=== PATIENT | male | born 1995 | race Caucasian/White ===

== ENCOUNTER 2019-11-27 20:29 | Emergency (ER) | payer MEDICAID, OTHER ==
[~2019-11-27] VITALS: Ht 177.8 cm; Wt 76.2 kg
--- NOTE | 2019-11-27 20:41 | NUR ---
PATIENT CAME TO ER BED 1 C/O RIGHT ANKLE PAIN. PATIENT STATES THAT TODAY HE WAS WALKING UP STAIRS WHEN HE TWISTED HIS RIGHT ANKLE. SWELLING NOTED ON THE LATERAL SIDE ON THE MIDFOOT. PATIENT ABLE TO WRIGGLE TOES. SENSATION IS EQUAL TO THE LEFT FOOT. PATIENT'S PEDAL PULSES PRESENT BILATERALLY AND EQUALLY. AAOX4. NO SOB .BREATHING EVENLY AND UNLABORED ON ROOM AIR.
--- NOTE | 2019-11-27 20:41 | NUR ---
XRAY AT BEDSIDE.
[2019-11-27] MEDS ORDERED: HYDROCODONE/APAP 10/325MG TABLET ONE (21:01)
--- NOTE | 2019-11-27 21:02 | NUR ---
TECH AT BEDSIDE FOR POSTERIOR SHORTLEG ON RIGHT LEG.
[2019-11-27 21:23] VITALS: BP 122/74
[2019-11-27] MEDS ORDERED: HYDROCODONE/APAP 10/325MG TABLET PO ONE (21:30)
== END 2019-11-27 21:24 | disposition home or self-care (01) ==
LOC: ER 20:33
DX: S92.351A Displaced fracture of fifth metatarsal bone, right foot, initial encounter for closed fracture (principal); Z60.2 Problems related to living alone; W10.8XXA Fall (on) (from) other stairs and steps, initial encounter; Y93.89 Activity, other specified; Y92.89 Other specified places as the place of occurrence of the external cause; Y99.8 Other external cause status
CPT/HCPCS: 73630-TC